=== PATIENT | female | born 1975 | race African-American/Black ===

== ENCOUNTER → 2017-07-08 07:37 | Outpatient (CLI) | payer OTHER, SELFPAY ==
[2017-07-08 09:59] LABS: Glucose 1 Hour Gest 124 mg/dL (76-180)
[2017-07-08 10:32] LABS: Glucose 2 Hour Gest 89 mg/dL (76-155)
[2017-07-08 11:06] LABS: Glucose Tol Interp,Gestational INTERPRETATION
[2017-07-08 11:07] LABS: Glucose Fasting Gestational 74 mg/dL (76-95)
[2017-07-08 11:49] LABS: Glucose 3 Hour Gest 95 mg/dL (76-140)
== END ==
PROVIDERS: PCP Specialist; Visit Provider Specialist
DX: R73.02 Impaired glucose tolerance (oral) (principal)
CPT/HCPCS: 82951; 82952

== ENCOUNTER → 2017-08-26 09:59 | Outpatient (CLI) | payer OTHER, SELFPAY ==
[2017-08-27 08:40] LABS: Strep Grp B PCR POS for Grp B Strep
== END ==
PROVIDERS: Family Provider Specialist; PCP Specialist; Visit Provider Specialist
DX: Z34.03 Encounter for supervision of normal first pregnancy, third trimester (principal); Z3A.36 36 weeks gestation of pregnancy
CPT/HCPCS: 87653

== ENCOUNTER 2017-09-26 16:12 | Outpatient (CLI) | payer OTHER, SELFPAY ==
--- NOTE | 2017-09-28 09:20 | P.TNLD_ITS ---
Visit Information Visit Information Date of evaluation: 09/26/17 Primary OB Provider: Denice Holden On-call OB Provider: Lisa Pittman Reason for Evaluation: Yes non-stress test non-stress test reason: other ( postdates) Evaluation Evaluation Baseline heart rate: 130 Variability: Moderate (11-25) monitor accelerations: Present monitor decelerations: Absent Category of Tracing: I
== END 2017-09-26 17:00 | disposition home or self-care (01) ==
LOC: LABOR 17:00 → OB 09-27 17:02
PROVIDERS: Family Provider Specialist; PCP Specialist; Visit Provider Obstetrics & Gynecology
DX: Z34.03 Encounter for supervision of normal first pregnancy, third trimester (principal); Z3A.40 40 weeks gestation of pregnancy
CPT/HCPCS: 59025; G0378; G0379

== ENCOUNTER → 2017-09-29 08:56 | Outpatient (CLI) | payer OTHER, SELFPAY ==
--- NOTE | 2017-09-29 09:46 | PM.OBTRLD ---
Visit Information Visit Information Date of evaluation: 09/29/17 Primary OB Provider: Denice Holden Reason for Evaluation: Yes non-stress test Comments/Additional reasons for admission: post dates Vital Signs Vital Signs: Blood pressure 110/72, pulse is 78 Evaluation Evaluation Baseline heart rate: 120 Variability: Moderate (11-25) monitor accelerations: Present monitor decelerations: Absent Cervical dilation (cm): 3 Cervical effacement (%): 60 station: -2 Diagnosis, Plan/Disposition Final Diagnosis (1) 41 weeks gestation of : Current Visit: Yes Status: Acute (2) Normal first in third trimester: Current Visit: Yes Status: Acute Plan/Disposition Plan: Patient will return in the morning for Pitocin induction
== END | disposition home or self-care (01) ==
LOC: LABOR 09:56 → OB 14:45
PROVIDERS: PCP Specialist; Visit Provider Specialist
DX: O48.0 Post-term pregnancy (principal); Z3A.41 41 weeks gestation of pregnancy
CPT/HCPCS: 59025; G0378; G0379

== ENCOUNTER 2017-09-30 02:32 | Inpatient (IN) | payer OTHER, SELFPAY ==
[2017-09-30] VITALS (10 sets, daily range): BP systolic 86–110; BP diastolic 48–73; PULSE 65–71; RESP 15–18; TEMP 35.9–36.1; O2SAT 97–98
[2017-09-30] MEDS: PENICILLIN G POTASSIUM 5,000,000 UNIT in DEXTROSE 5% IN WATER 250 ML IV (03:00)
[2017-09-30 03:13] LABS: Add Manual Diff / Slide Review NO; Basophils Percent Auto 0.5 % (0-2); Hematocrit 34.3 % (36-46); Hemoglobin 11.5 g/dL (12.0-16.0); Lymphocytes Percent Auto 26.9 % (25-40); Mean Corpuscular HGB Conc 33.7 % (30-36); Mean Corpuscular Hemoglobin 29.8 PG (26-34); Mean Corpuscular Volume 88.3 fL (80-100); Monocytes Percent Auto 7.4 % (3-14); Neutrophils Absolute Auto 5100 /uL (3000-5900); Neutrophils Percent Auto 64.2 % (50-75); Platelet Count 233 X10^3/uL (150-400); Red Blood Cell Count 3.88 X10^6/uL (4.0-5.2); Red Cell Distribution Width 14.3 % (11.6-14.8); White Blood Cell Count 7.9 X10^3/uL (4.5-11.0)
[2017-09-30] MEDS: PENICILLIN G POTASSIUM 3,000,000 UNIT/50 ML FROZ.PIGGY 100 UNIT IV ×2 (07:30→11:24)
--- NOTE | 2017-09-30 08:21 | P.HPOB_ITS ---
OB HPI Date/Time Date of admission: 09/30/17 Date Patient Seen: 09/30/17 Time Patient Seen: 08:14 History of Present Illness Chief complaint: EVALUATION OF LABOR : 2 Para: 0 Estimated Date of Delivery: 09/22/17 Estimated Gestational Age (weeks): 41 Narrative: Afia Levy is a 42 year old female admitted with spontaneous rupture membranes History of Present care: good care Dating criteria: LMP confirmed by 1st trimester US Ultrasounds: normal mid trimester US Obstetrical complications: none Medical complications: none Preadmission Labs Blood type: O (+) positive -: Antibody screen: negative, GBS status: positive, HBsAG: negative, HIV: negative and RPR/VDLR: negative -: Chlamydia screen: not detected and Gonorrhea screen: not detected -: Rubella: immune HCAB: negative PAP: Normal Cell-free DNA: normal male 1 hr GTT: 160 3 hr GTT: 1 hr (124), 2 hr (89) and 3 hr (95) Fasting blood glucose: 74 Evaluation Evaluation Laboratory results: Laboratory Tests 09/30/17 09/30/17 02:45 02:45 WBC 7.9 RBC 3.88 L Hgb 11.5 L Hct 34.3 L MCV 88.3 MCH 29.8 MCHC 33.7 RDW 14.3 Plt Count 233 Neut % (Auto) 64.2 Lymph % (Auto) 26.9 [place] % (Auto) 7.4 Eos % (Auto) 1.0 L Baso % (Auto) 0.5 Neut # (Auto) 5100 Blood Type O Positive Antibody Screen Negative PFSH Family History Mother Hypertension Social History Smoking Status: Never smoker Meds Home Medications Medication Instructions Recorded Confirmed Type vit-iron fum-folic ac 1 cap PO QDAY #0 05/03/17 09/30/17 History [Mynatal] Allergies Allergy/AdvReac Type Severity Reaction Status Date / Time No Known Allergies Allergy Uncoded 09/30/17 03:09 Review of Systems Review of Systems Patient denies headaches, scotomata, epigastric pain. Baby has been moving well. She was having contractions until she had spontaneous rupture of membranes this a.m. her contractions have decreased since that time. All systems reviewed & are unremarkable except as noted in HPI and below Exam Vital Signs (past 8 hours): Blood pressure 102/64, pulse 63, temperature 36.3?- 09/30/17 03:10 Blood Pressure 110/70 Narrative Exam Narrative: Patient's HEENT exam is within normal limits. Lungs are clear to auscultation and percussion. Heart is regular rate and rhythm no S3-S4 or murmurs. Abdomen is soft, nontender. Extremities with out edema, nontender. Manual OB Exam: dilated 4, effaced 75% and station -2 Uterus Location (Fundal Height): 38 Presentation: vertex Amniotic Fluid: clear Other: heart tone baseline 120 with accelerations, no decelerations, category 1, irregular contractions. Objective Labs Result Diagrams: 09/30/17 02:45 Labs: Laboratory Results - last 24 hr 09/30/17 09/30/17 02:45 02:45 WBC 7.9 RBC 3.88 L Hgb 11.5 L Hct 34.3 L MCV 88.3 MCH 29.8 MCHC 33.7 RDW 14.3 Plt Count 233 Neut % (Auto) 64.2 Lymph % (Auto) 26.9 [place] % (Auto) 7.4 Eos % (Auto) 1.0 L Baso % (Auto) 0.5 Neut # (Auto) 5100 Blood Type O Positive Antibody Screen Negative Assessment and Plan (1) 41 weeks gestation of : Current visit: No Status: Acute (2) Normal first in third trimester: Current visit: No Status: Acute Plan: Plan: Forty-one week gestation with spontaneous rupture of membranes. Patient will receive IV penicillin for positive group B strep culture. Will begin Pitocin augmentation of labor. Patient requests epidural when she is needs for pain.
[2017-09-30] MEDS: OXYTOCIN PREMIX 30 UNIT/500 ML PLAST..BAG IV (08:55)
[2017-09-30] MEDS: LACTATED RINGERS 1,000 ML 125 ML IV ×2 (11:18→12:54)
[2017-09-30] MEDS: ONDANSETRON 4 MG/2 ML INJ IV ×2 (13:13→16:40)
--- NOTE | 2017-09-30 14:53 | PM.PN.1 ---
Subjective Date Patient Seen: 09/30/17 Time Patient Seen: 14:19 Interval history: Fetus began having late decelerations. Resuscitative measures were performed. First deceleration was thought to be due to low blood pressure. After receiving ephedrine her blood pressure improved but the fetus continued to have late decelerations. Internal toco was placed which confirms the patient is having adequate contractions but minimal change in her cervix. Objective Labs Result Diagrams: 09/30/17 02:45 Labs: Laboratory Results - last 24 hr 09/30/17 09/30/17 02:45 02:45 WBC 7.9 RBC 3.88 L Hgb 11.5 L Hct 34.3 L MCV 88.3 MCH 29.8 MCHC 33.7 RDW 14.3 Plt Count 233 Neut % (Auto) 64.2 Lymph % (Auto) 26.9 [place] % (Auto) 7.4 Eos % (Auto) 1.0 L Baso % (Auto) 0.5 Neut # (Auto) 5100 Blood Type O Positive Antibody Screen Negative Assessment & Plan (1) Late deceleration of heart rate: Current visit: Yes Status: Acute Plan: Assessment/Plan Narrative: First stage arrest and late decelerations will proceed with section. Consent form was signed. Risks were discussed with the patient. Questions were answered.
--- NOTE | 2017-09-30 14:58 | PM.PREOP ---
Pre-operative Note Interval Note Pre-op Check: Yes History & Physical exam performed today by Physician Changes: Yes H&P completed within 30 days and has changed as indicated here:: late deceleration and first-stage arrest
[2017-09-30] MEDS: CEFAZOLIN 2 GM/100 ML FROZ.PIGGY IV (15:14)
--- NOTE | 2017-09-30 15:41 | SUR.OPER ---
Supine on Padded OR bed, head on pillow, safety belt at thigh, arms secured on padded arm boards at <90 degrees abduction. Bump under right buttock. Legs uncrossed with pillow under knees, gel pad to heels, tape over blanket to lower legs.
--- NOTE | 2017-09-30 16:06 | SUR.OPER ---
FHT 116 AFTER EPIDURAL DOSED, VIABLE BABY BOY BORN AT 1529
--- NOTE | 2017-09-30 16:32 | PM.OP.1 ---
Operative Date/Time/Diagnoses Date of procedure: 09/30/17 Time of procedure: 16:32 Pre-op diagnosis: First stage arrest and intolerance of labor Post-op diagnosis: same Procedure & Clinicians Procedure: Primary low-transverse section Same procedure as scheduled: Yes Indications: First stage arrest with intolerance of labor. Surgeon: Denice Holden Click Yes if Unassisted: Yes Anesthesia Type: Epidural Operative Notes Findings: Normal tubes, ovaries, and uterus. Viable male infant. Weight 7 lb 13 oz, 3555 g, Apgars 8 and 9 Closure Type: primary Specimen(s): none sent Applied: catheter Estimated Blood Loss (mL): 350 Blood products transfused: none Procedure in detail: The patient was brought to the operating room where she underwent bolus in her epidural for anesthesia. She was placed in a supine position with a left lateral tilt. A Martin catheter was in place. Pulsatile stockings were placed and functional throughout the case. 2 g of Ancef were given IV prior to the incision. Warming was in place. The patient was prepped and draped in usual sterile fashion. A low transverse incision was made with a scalpel and the incision was carried down to the fascial layer which was incised transversely with scissors. The midline attachments are superiorly and inferiorly. Some bleeding was controlled Bovie. The rectus muscles were in the midline and the peritoneal incision was made with no damage to internal structures. The peritoneum was incised and superiorly and inferiorly. Bladder blade was placed and a bladder flap was developed and the bladder held away from the lower uterine segment. An incision was made in the uterus with the scalpel and the incision was extended with stretching. The head was elevated out of the abdomen and with fundal pressure the baby was delivered. The infant was bulb suctioned for thick meconium fluid and handed off to the warmer. Cord blood was collected. The placenta delivered spontaneously with traction. The uterus was cleaned with clean laps. The uterine incision was closed in 2 layers of 0 chromic suture the first a running locking layer the second an imbricating layer. The bladder peritoneum was repaired with 2-0 Polysorb suture. The gutters were cleaned of any remaining fluids and ovaries and tubes were observed to be normal. Adequate hemostasis was noted. The perineum was closed with 2-0 Polysorb suture. The fascia layer was closed with 0 Polysorb suture with 2 stitches. The incision was irrigated and adequate hemostasis noted. The incision was closed with interrupted 3-0 Polysorb sutures and then a subcuticular stitch of 4-0 Polysorb suture. Steri-Strips were placed. The uterus was massaged to remove any clots. The patient went to recovery room in good condion. Counts of instruments and sponges were correct. Complications: none Condition: stable Disposition: PACU Plan for aftercare: Routine post section care.
--- NOTE | 2017-09-30 16:47 | SUR.PHASEI ---
pt c/o one eposide of nausea, zofran given via iv with good results. pt states no further nausea at this time. Report called to Mesha RN in center. Pt in stable condition, vss. Iv site clear and infusing without difficultly. Drsg to abd c/d/i. Ceci-pad observed to be c/d/i. Pt unable to move lower extremities related to epidural. Catheter secure and draining tanesha colored urine. Pt denies any pain/discomfort at this time. Pt resting in bed with eyes closed, easily arousable to voice. pt appears comfortable at this time.
--- NOTE | 2017-09-30 17:05 | SUR.PHASEI ---
PT TRANSFERED TO IN STABLE CONDITION. PT TALKING TO RN DURING TRANSPORT. BEDSIDE REPORT GIVEN TO NEVAEH BETTS AND TRANSFERED CARE OF PT TO HER AT THAT TIME.
[2017-09-30] MEDS: LACTATED RINGERS 1,000 ML 100 ML IV (18:16)
[2017-09-30] MEDS: KETOROLAC 30 MG/ML VIAL IV (22:17)
[2017-10-01] MEDS: OXYCODONE/ACETAMINOPHEN 5/325 TABLET 2 TAB PO ×4 (02:30→19:30)
[2017-10-01] MEDS: KETOROLAC 30 MG/ML VIAL IV ×2 (03:58→11:39)
[2017-10-01 05:40] LABS: Add Manual Diff / Slide Review NO; Basophils Percent Auto 0.1 % (0-2); Eosinophils Percent Auto 0.1 % (2-4); Hematocrit 30.3 % (36-46); Lymphocytes Percent Auto 18.6 % (25-40); Mean Corpuscular Hemoglobin 29.2 PG (26-34); Mean Corpuscular Volume 88.3 fL (80-100); Monocytes Percent Auto 7.4 % (3-14); Neutrophils Absolute Auto 7000 /uL (3000-5900); Neutrophils Percent Auto 73.8 % (50-75); Platelet Count 220 X10^3/uL (150-400); Red Blood Cell Count 3.43 X10^6/uL (4.0-5.2); Red Cell Distribution Width 14.3 % (11.6-14.8); White Blood Cell Count 9.5 X10^3/uL (4.5-11.0)
[2017-10-01] MEDS: PRENATAL VIT,CALC/IRON/FOLIC 1 TABLET 1 TAB PO (09:05)
[2017-10-01] MEDS: DOCUSATE 250 MG CAPSULE PO (09:05)
--- NOTE | 2017-10-01 11:27 | PM.PNPO.1 ---
Subjective Date Patient Seen: 10/01/17 Time Patient Seen: 11:27 Interval history: This is the 1st day post section. Patient denies headaches, scotomata, epigastric pain. She is able to get good pain relief with Percocet. Exam Vital Signs (past 8 hours): Blood pressure 91/54, pulse is 71, temperature 97.7? Oxygen Delivery Method Room Air Narrative Exam Narrative: Patient's abdomen is soft, nontender. Uterus is firm, at U, appropriately tender. Dressing is clean, dry, and intact. Mild lochia. Extremities without edema, nontender. Objective Labs Result Diagrams: 10/01/17 04:54 Labs: Laboratory Results - last 24 hr 10/01/17 04:54 WBC 9.5 RBC 3.43 L Hgb 10.0 L Hct 30.3 L MCV 88.3 MCH 29.2 MCHC 33.0 RDW 14.3 Plt Count 220 Neut % (Auto) 73.8 Lymph % (Auto) 18.6 L [place] % (Auto) 7.4 Eos % (Auto) 0.1 L Baso % (Auto) 0.1 Neut # (Auto) 7000 H Assessment & Plan Post-op (1) Delivery by section of full-term infant: Problem details: Patient is doing well postoperative section. Routine post section care. Probable discharge in a.m. if the baby and patient are doing well. Current Visit: Yes Status: Acute Postoperative Procedures Operation Date: 09/30/17 15:15 Actual Procedures Side Surgeon p Section Denice Holden MD Time Spent With Patient less than 15 minutes
[2017-10-01] MEDS: IBUPROFEN 600 MG TABLET PO (19:30)
[2017-10-02] MEDS: IBUPROFEN 600 MG TABLET PO ×2 (05:21→11:16)
[2017-10-02] MEDS: OXYCODONE/ACETAMINOPHEN 5/325 TABLET 2 TAB PO ×3 (05:22→15:54)
[2017-10-02 10:58] VITALS: BP 102/62; PULSE 71; RESP 16; TEMP 36.9
[2017-10-02] MEDS: DOCUSATE 250 MG CAPSULE PO (11:16)
[2017-10-02] MEDS: LANOLIN OINT 7 GM 1 APPLIC TOP (11:17)
--- NOTE | 2017-10-02 11:21 | PM.OBDS.1 ---
Discharge Providers Date of admission: 09/30/17 14:59 Primary care physician: Denice Holden MD Consults: 09/30/17 18:02 Consult to Metal Caster Routine Comment: Discharge provider: Denice Holden MD Discharge Date: 10/02/17 Summary Date Patient Seen: 10/02/17 Time Patient Seen: 11:21 Hospital Course: Patient was admitted with spontaneous rupture membranes at 41 weeks. She received IV penicillin for positive group B strep culture. She received epidural catheter for pain control. She had 1st stage arrest in intolerance of labor and so ended up with a primary low-transverse section. Both infant and mother did well . Patient denies any signs or symptoms of preeclampsia. She is passing gas and urinating well. She is ambulatory. On physical exam the patient blood pressure 102/62, pulse 75, temperature 98.5?. Patient's abdomen is soft, nontender. Uterus is firm, at U, appropriately tender. Dressing is clean dry and intact. Mild lochia. Extremities without edema and nontender. Peripartum Data Delivery Method: Section Procedures: IV antibiotics for positive group B strep culture, epidural catheter, primary low-transverse section complications: none 1: Gender: Male Disposition of : home Discharge Diagnosis (1) Delivery by section of full-term infant: Status: Acute Problem Details: Patient is doing well postoperative section. Routine post section care. Probable discharge in a.m. if the baby and patient are doing well. Status at Discharge Functional status at discharge: independent ambulation Overall status at discharge: patient is progressing back to baseline Time Spent with Patient Total time spent providing and/or coordinating discharge services: Less than 30 minutes Objective Labs Result Diagrams: 10/01/17 04:54 Discharge Plan Discharge Plan Patient Disposition: Home, Self-Care Discharge Med Rec/Prescriptions Prescriptions: New docusate sodium [Col-Rite] 100 mg capsule 200 mg PO DAILY PRN (Reason: Prevent constipation) Qty: 40 RF: 0 oxycodone-acetaminophen 5-325 mg Tablet 2 tab PO Q4HR PRN (Reason: Pain, Severe (7-10)) Qty: 40 RF: 0 ibuprofen 600 mg Tablet 600 mg PO Q6HR PRN (Reason: As Needed For Fever/Mild Pain) Qty: 40 RF: 0 oxycodone-acetaminophen 5-325 mg tablet 2 tab PO Q4-6H PRN (Reason: pain) Qty: 40 RF: 0 Continue vit-iron fum-folic ac [Mynatal] 1 EACH capsule 1 cap PO QDAY Qty: 0 RF: 0 Discharge Data Primary Care Provider: Denice Holden Attending Provider: Denice Holden Admit Date/Time: 09/30/17 14:59
--- NOTE | 2017-10-02 11:24 | P.DS_ITS ---
Discharge Providers Date of admission: 09/30/17 14:59 Primary care physician: Denice Holden MD Consults: 09/30/17 18:02 Consult to Orientation And Mobility Instructor Routine Comment: Discharge provider: Denice Holden MD Discharge Date: 10/02/17 Summary Date Patient Seen: 10/02/17 Time Patient Seen: 11:21 Hospital Course: Patient was admitted with spontaneous rupture membranes at 41 weeks. She received IV penicillin for positive group B strep culture. She received epidural catheter for pain control. She had 1st stage arrest in intolerance of labor and so ended up with a primary low-transverse section. Both infant and mother did well . Patient denies any signs or symptoms of preeclampsia. She is passing gas and urinating well. She is ambulatory. On physical exam the patient blood pressure 102/62, pulse 75, temperature 98.5? . Patient's abdomen is soft, nontender. Uterus is firm, at U, appropriately tender. Dressing is clean dry and intact. Mild lochia. Extremities without edema and nontender. Peripartum Data Infant Delivery Method: Section Procedures: IV antibiotics for positive group B strep culture, epidural catheter , primary low-transverse section complications: none 1: Gender: Male Disposition of : home Discharge Diagnosis (1) Delivery by section of full-term infant: Status: Acute Problem Details: Patient is doing well postoperative section. Routine post section care. Probable discharge in a.m. if the baby and patient are doing well. Status at Discharge Functional status at discharge: independent ambulation Overall status at discharge: patient is progressing back to baseline Time Spent with Patient Total time spent providing and/or coordinating discharge services: Less than 30 minutes Objective Labs Result Diagrams: 10/01/17 04:54 Discharge Plan Discharge Plan Patient Disposition: Home, Self-Care Discharge Med Rec/Prescriptions Prescriptions: New docusate sodium [Col-Rite] 100 mg capsule 200 mg PO DAILY PRN (Reason: Prevent constipation) Qty: 40 RF: 0 oxycodone-acetaminophen 5-325 mg Tablet 2 tab PO Q4HR PRN (Reason: Pain, Severe (7-10)) Qty: 40 RF: 0 ibuprofen 600 mg Tablet 600 mg PO Q6HR PRN (Reason: As Needed For Fever/Mild Pain) Qty: 40 RF: 0 oxycodone-acetaminophen 5-325 mg tablet 2 tab PO Q4-6H PRN (Reason: pain) Qty: 40 RF: 0 Continue vit-iron fum-folic ac [Mynatal] 1 EACH capsule 1 cap PO QDAY Qty: 0 RF: 0 Discharge Data Primary Care Provider: Denice Holden Attending Provider: Denice Holden Admit Date/Time: 09/30/17 14:59
== END 2017-10-02 16:50 | disposition home or self-care (01) | DRG 766 ==
PROVIDERS: Admitting Provider Specialist; Family Provider Specialist; PCP Specialist; Visit Provider Specialist
PROC: 10D00Z1 Extraction of Products of Conception, Low, Open Approach (ICD-10-PCS; CPT 59514; principal; 2017-09-30 15:15)
DX: O99.824 Streptococcus B carrier state complicating childbirth (principal); Z3A.41 41 weeks gestation of pregnancy; Z37.0 Single live birth; O62.1 Secondary uterine inertia; O76 Abnormality in fetal heart rate and rhythm complicating labor and delivery; O77.0 Labor and delivery complicated by meconium in amniotic fluid
CPT/HCPCS: 01967; 01968; 36415; 59050; 59510; 85025; 86850; 86900; 86901; G0378; G0379; J0690; J1885; J2405; J2540; J2590; J2765; J3010

== ENCOUNTER → 2020-04-30 11:11 | Outpatient (CLI) | payer OTHER, SELFPAY ==
[2020-04-30] MEDS: COVID-19 VACC, Ad26(JANSSEN)/PF 0.5 ML IM (11:31)
== END ==
PROVIDERS: Family Provider Specialist; PCP Specialist; Visit Provider Internal Medicine
DX: Z23 Encounter for immunization (principal)
CPT/HCPCS: 0031A; 91303

== ENCOUNTER → 2020-05-17 08:40 | Outpatient (CLI) | payer OTHER, SELFPAY ==
[2020-05-17 09:28] LABS: Hemoglobin 11.9 g/dL (12.0-16.0); Mean Corpuscular Hemoglobin 28.5 PG (26-34); Mean Corpuscular Volume 86.6 fL (80-100); Platelet Count 398 X10^3/uL (150-400); Red Blood Cell Count 4.15 X10^6/uL (4.0-5.2); Red Cell Distribution Width 14.5 % (11.6-14.8); White Blood Cell Count 5.5 X10^3/uL (4.5-11.0)
[2020-05-17 09:40] LABS: Alanine Aminotransferase 25 IU/L (<35); Albumin 4.1 g/dL (3.5-5.0); Albumin Globulin Ratio 1.4 (1.0-2.8); Alkaline Phosphatase 81 U/L (38-126); Aspartate Aminotransferase 28 IU/L (14-36); BUN Creatinine Ratio 23.9 (6-22); Bilirubin Total 0.3 mg/dL (0.2-1.3); Blood Urea Nitrogen 16 mg/dL (7-17); Calcium 9.5 mg/dL (8.4-10.2); Carbon Dioxide 27 mmol/L (22-32); Chloride 108 mmol/L (98-107); Cholesterol 128 mg/dL (140-199); Estimated Glomerular Filt Rate > 60.0 mL/min (>60); Globulin 2.9 g/dL (1.7-4.1); Glucose 93 mg/dL (70-100); HDL Cholesterol 52 mg/dL (40-60); HEMOLYSIS < 15 (0-50); LDL Cholesterol Calculated 66 mg/dL (<100); Potassium 4.8 mmol/L (3.4-5.1); Sodium 140 mmol/L (137-145); Triglycerides 49 mg/dL (35-150)
[2020-05-17 10:09] LABS: TSH w/ Reflex to FT4 1.32 uIU/mL (0.47-4.68)
== END ==
PROVIDERS: Family Provider Specialist; PCP Registered Nurse Diabetes Educator; Referring Provider Registered Nurse Diabetes Educator; Visit Provider Registered Nurse Diabetes Educator
DX: K80.20 Calculus of gallbladder without cholecystitis without obstruction (principal)
CPT/HCPCS: 36415; 80053; 80061; 84443; 85027

== ENCOUNTER → 2020-05-28 08:02 | Outpatient (CLI) | payer OTHER, SELFPAY ==
--- NOTE | 2020-05-28 08:04 | DI.US.S_ITS ---
PROCEDURE: US ABDOMEN LIMITED INDICATIONS: hx gallstones TECHNIQUE: Real-time focused scanning was performed of the abdomen, with image documentation. COMPARISON: [facility], US, ABDOMEN COMPLETE, 05/03/2017, 22:25. FINDINGS: There are several granular gallstones layering dependently within the gallbladder causing dense posterior shadow. The gallbladder wall is normal thickness at 2.3 mm. There is no pericholecystic fluid or sonographic Huerta sign. The extrahepatic common duct is 4.3 mm and there is no sonographic evidence of choledocholithiasis on this exam. The visible portions of the liver and pancreas are normal. No free fluid in the right upper quadrant. IMPRESSION: 1. Cholelithiasis without sonographic evidence of acute cholecystitis. 2. Quantity of gallstones appears to have increased since the previous study. Dictated by: Loli Vizcaino M.D. on 05/28/2020 at 8:39 Approved by: Loli Vizcaino M.D. on 05/28/2020 at 8:42
== END ==
PROVIDERS: Family Provider Specialist; PCP Registered Nurse Diabetes Educator; Referring Provider Registered Nurse Diabetes Educator; Visit Provider Registered Nurse Diabetes Educator
DX: K80.20 Calculus of gallbladder without cholecystitis without obstruction (principal)
CPT/HCPCS: 76705

== ENCOUNTER → 2020-06-20 11:15 | Outpatient (CLI) | payer OTHER, SELFPAY ==
[2020-06-20 16:36] LABS: COVID19 -Nasal RAPID Negative (Negative)
== END ==
PROVIDERS: Family Provider Specialist; PCP Registered Nurse Diabetes Educator; Visit Provider Surgery
DX: Z20.822 Contact with and (suspected) exposure to COVID-19 (principal)
CPT/HCPCS: 87635; C9803

== ENCOUNTER 2020-06-23 12:55 | Day surgery (SDC) | payer OTHER, SELFPAY ==
[2020-06-19 07:49] VITALS: BMI 29.9
[2020-06-23] VITALS (14 sets, daily range): BP systolic 107–124; BP diastolic 67–77; PULSE 66–78; RESP 12–18; TEMP 36.1–36.2; O2SAT 99–100; BMI 29.9
--- NOTE | 2020-06-23 | PATH_ITS ---
[facility] Accession Number: [id number] . 01 Material submitted: . gallbladder - GALLBLADDER AND CONTENTS . 02 Diagnosis: Gallbladder and Contents, Cholecystectomy: Cholelithiasis. No evidence of neoplasm. V 06/27/2020 1113 Local . 02 Electronically signed: . Paulo Bridges MD, PhD, Pathologist NPI- [id number] . 01 Gross description: . The specimen is received in formalin, labeled gallbladder and contents and consists of a 6.6 x 2.5 x 1.5 cm previously disrupted gallbladder with a 0.2 cm in diameter cystic duct. The serosa is valdivia-pink and smooth. Opening reveals multiple valdivia to valdivia-green multifaceted choleliths and cholelith fragments ranging from 0.1-0.5 cm and measuring 5.0 x 2.0 x 1.5 cm in aggregate. The mucosa is valdivia-pink and velvety and the wall thickness measures 0.1 cm. Human Resources Mgr sections are submitted to include the en face cystic duct margin (blue) in cassette A1. ([id number]) /MRV 06/24/2020 1611 Local . 02 Pathologist provided ICD-10: K80.70 . 02 CPT . 931137 Performed at: 01 [facility] [address], [place], [place] [id number] MD Dutch Murray MD Phone: [phone] Performed at: 02 [facility] [address] [place], [place] [id number] MD Tammy Crowell MD Phone: [phone]
[2020-06-23] MEDS: LACTATED RINGERS 1,000 ML 100 ML IV ×2 (13:42→16:20)
--- NOTE | 2020-06-23 14:37 | SUR.PREOP ---
Pt POC Blood Glucose 65. HCG Combo test indicates negative result. Lot: [id number] EXP: 2021-05-21
--- NOTE | 2020-06-23 14:39 | PM.PREOP ---
Pre-operative Note COVID-19 COVID-19 status: Negative Result date/Date tested (Pos, Neg/Pending): 06/20/20 Interval Note History & Physical reviewed/Exam performed by Physician: Yes Changes to H&P: No
--- NOTE | 2020-06-23 14:40 | SUR.PREOP ---
Anesthesiologist at [facility] aware of negative HCG and POC blood glucose 65. No new orders.
[2020-06-23] MEDS: INDOCYANINE GREEN 25 MG VIAL 5 MG TOP (14:53)
[2020-06-23] MEDS: PIPERACILLIN-TAZO 4.5 GM/100 ML FROZ.PIGGY IV (15:02)
[2020-06-23] MEDS: ACETAMINOPHEN IV 1,000 MG/100 ML VIAL 400 MG IV (15:20)
--- NOTE | 2020-06-23 15:21 | SUR.OPER ---
Supine on padded OR bed, head on pillow, arms secured on padded arm boards at <90 degrees abduction, legs uncrossed, safety belt at thigh, tape over blanket over lower legs.
[2020-06-23] MEDS: BUPIVACAINE 0.5% W/ EPI (PF) 30 ML VIAL INJ (15:25)
--- NOTE | 2020-06-23 16:34 | P.OP_ITS ---
Operative Date/Time/Diagnoses Date of procedure: 06/23/20 Time of procedure: 16:34 Pre-op diagnosis: Symptomatic cholelithiasis Post-op diagnosis: same Procedure & Clinicians Procedure: Laparoscopic cholecystectomy Indocyanine green cholangiography Same procedure as scheduled: Yes Indications: Symptomatic cholelithiasis Surgeon: Conchita Person Click Yes if Unassisted: Yes Anesthesia Type: General Operative Notes Findings: Thickened gallbladder, full of gallstones, multiple small vessels to gallbladder wall from liver surface Specimen(s): other (Gallbladder and contents) Estimated Blood Loss (mL): 4 Procedure in detail: The patient was brought into the operating room and placed supine on the OR table. Sequential compression devices were placed on both legs and turned on. Appropriate perioperative antibiotics were given prior to the start of surgery. General anesthesia was induced the patient was intubated. The abdomen was prepped and draped in sterile fashion. Surgical time-out was conducted. Local anesthetic was injected under the skin just superior to the umbilicus and a 5 mm vertical incision was made at this site. The umbilical stalk was grasped with a Hannah and elevated. A Veress needle was passed through the fascia into proper position. The position was tested with a saline drop test which was appropriate for intra-abdominal Veress needle placement. The abdomen was then insufflated in the usual fashion. Once insufflated to 15 mm Hg the Veress needle was removed and a 5 mm optical trocar was placed under direct vision using a 5 mm 30 degree scope. Once the camera was inside the abdomen I took a look around. There was no injury from port placement. Two additional ports were placed in a similar fashion in the right upper quadrant and a 10 mm port was placed in the epigastrium. Through the 2 lateral ports the gallbladder was grasped and elevated and the infundibulum was retracted laterally to the patient's right. This exposed the gallbladder hilum and allowed for dissection of the cystic duct and cystic artery. At this point dissection of the gallbladder hilum was undertaken, opening the peritoneum overlying the gallbladder hilum, and carrying the dissection up each side of the gallbladder towards the liver.. Indocyanine green cholangiography was used to identify the cystic duct and common bile duct. Both were easily seen, and the common bile duct was well away from the area of dissection. Once the cystic duct and artery were completely dissected out I was able to see liver behind and between both structures without any other structures in the way, giving us the critical view of safety. I palpated the cystic duct with a [place] grasper, and felt no obstructing stones within the duct. At this point I triply clipped both structures on the patient's side and put a single clip on the gallbladder side of both the cystic duct and artery. Both structures were then divided with laparoscopic [place]. Following this the gallbladder was gradually dissected free from the liver. There was quite a bit of hypervascularity of the scar tissue between the gallbladder and the liver. Several small vessels had to be controlled with cautery and surgical clips. Once the gallbladder was entirely freed, it was placed inside an Endo-Catch bag and removed through the epigastric port site. Due to size of the gallbladder and the fact that it was filled with many stones, I did have to slightly enlarge the epigastric port site in order to get the gallbladder out. Once it was out and passed off to the back table I then took another look inside the abdomen. I used a Ray-Rambo to absorb any remaining blood or fluid. I then examined the gallbladder fossa. There was no active bleeding or leaking of bile from the gallbladder fossa or from the clipped stumps of the cystic duct and artery. At this point an O vicryl on a Shilo Amaris suture passer was used to close the epigastric port site in the fascia. Insufflation was then removed from the abdomen. A 3 O Vicryl was used to close the subcutaneous layers, and 4 Monocryl in the skin. Additional local anesthetic was infiltrated into the skin and fascia at each port site. Each port site was sealed with Dermabond. This concluded the procedure. At this point the needle sponge and instrument counts were correct. The gallbladder was passed off the table for pathology. Patient was awakened from anesthesia and extubated. She was transferred to the postanesthesia care unit in stable condition. Complications: none Post-operative Condition: stable Disposition: PACU
[2020-06-23] MEDS: ONDANSETRON 4 MG/2 ML INJ IV (17:01)
[2020-06-23] MEDS: OXYCODONE IR 5 MG TABLET PO (18:00)
[2020-06-23] MEDS: ePHEDrine 50 MG/ML VIAL 25 MG IM (18:26)
== END 2020-06-23 18:36 | disposition home or self-care (01) ==
PROVIDERS: Family Provider Specialist; PCP Registered Nurse Diabetes Educator; Referring Provider Surgery; Visit Provider Surgery
PROC: 0FT44ZZ Resection of Gallbladder, Percutaneous Endoscopic Approach (ICD-10-PCS; CPT 47562; principal; 2020-06-23 14:45)
DX: K80.20 Calculus of gallbladder without cholecystitis without obstruction (principal)
CPT/HCPCS: 47563; J0131; J1100; J1885; J2250; J2405; J2543; J2704; J3010

== ENCOUNTER → 2021-09-21 08:36 | Outpatient (CLI) | payer OTHER, SELFPAY ==
--- NOTE | 2021-09-21 | DI.MG.S_ITS ---
BILATERAL DIGITAL SCREENING MAMMOGRAM 3D/2D WITH CAD: 09/21/2021 CLINICAL: Baseline exam. No prior exams were available for comparison. The tissue of both breasts is heterogeneously dense. This may lower the sensitivity of mammography. Current study was also evaluated with a Computer Aided Detection (CAD) system. No significant masses, calcifications, or other findings are seen in either breast. IMPRESSION: NEGATIVE There is no mammographic evidence of malignancy. A 1 year screening mammogram is recommended. Based on the Tyrer Cuzick model (a risk assessment model) the patient's lifetime risk is 14.5% and her 10 year risk is 2.6%. According to the ACR, ACS, and NCCN guidelines, an annual breast MRI exam along with mammogram is recommended if the patient's lifetime risk is 20% or greater. This exam was interpreted at Station ID: [id number]. NOTE: For mammograms, a report in lay terms will be sent to the patient. Approximately 15% of breast malignancies will not be visualized mammographically. In the management of a palpable breast mass, a negative mammogram must not discourage biopsy of a clinically suspicious lesion. Electronically Signed By: Jin Apple M.D., [email or web address]:09/21/2021 12:11:38 letter sent: Normal Exam ACR BI-RADS Category 1: Negative [id number]
== END ==
PROVIDERS: Family Provider Specialist; PCP Registered Nurse Diabetes Educator; Referring Provider Registered Nurse Diabetes Educator; Visit Provider Registered Nurse Diabetes Educator
DX: Z12.31 Encounter for screening mammogram for malignant neoplasm of breast (principal)
CPT/HCPCS: 77063; 77067